=== PATIENT | male | born 1970 | race Caucasian/White ===

== ENCOUNTER 2020-03-02 16:43 | Inpatient (IN) | payer SELFPAY ==
[~2020-03-02] VITALS: Ht 172.7 cm; Wt 83.2 kg
[2020-03-02] VITALS (8 sets, daily range): BP systolic 132–147; BP diastolic 82–92; Ht 172.7 cm; Wt 83.2 kg
--- NOTE | ~2020-03-02 | OP ---
PATIENT NAME: GEORGINA CHO MEDICAL RECORD: [id number] :68 LOCATION:[id number] ADMISSION DATE:03/02/20 SURGEON: GEORGINA HALEY MD DATE OF OPERATION: 03/02/2020 PREOPERATIVE DIAGNOSIS: Fracture dislocation of the right ankle. POSTOPERATIVE DIAGNOSIS: Fracture dislocation of the right ankle. PROCEDURE: Open reduction and internal fixation of fracture dislocation of the right ankle. SURGEON: Georgina Haley MD AUTOMATION LEAD: CHERRI Foley INTRAOPERATIVE COMPLICATIONS: None. SUMMARY OF PATHOLOGIC FINDINGS: The patient was initially met in the ER with a complete fracture dislocation. Mild amount of conscious sedation was given to the patient in the ER and the fracture was reduced and his pulses became very viable and bounding. Having completed this, he was then taken urgently to the operating room for the below mentioned surgery. OPERATIVE SUMMARY IN DETAIL: After obtaining the appropriate preoperative orthopedic surgery consent as well as anesthetic consultation, evaluation and clearance, the patient was brought to the operating room and placed on the operating table in supine position. After general laryngeal mask was administered, tourniquet was placed on the proximal aspect of the right lower extremity. Right lower extremity was then prepped and draped in routine sterile fashion. Leg was elevated, exsanguinated and tourniquet inflated to 350 mmHg. At this point, appropriate timeout was taken and agreed upon by all. Attention was first turned to the fibular fracture. An incision was made about the fibula. A 6-hole fibular plate was used, the VariAx 2, and a combination of both locking and nonlocking screws were utilized to reduce the fibula anatomically. Having completed this, again under fluoroscopic visualization, noting that the patient's medial malleolar fracture was more of a shear-type fracture up into the tibia, it was decided that a buttress plate along with internal fixation screws were needed. Again, under direct visualization, the fracture was reduced after all hematoma had been cleared from the fracture itself and then a 6-hole 1/3rd tubular plate was then placed in the buttress style fashion incorporating a fracture transfixing screws. Again, done under fluoroscopic visualization. Having completed this, final radiographs were taken in AP and lateral planes and submitted for AP, lateral and oblique planes and submitted for radiologist's review. Both wounds were copiously irrigated and closed with 2-0 Vicryl followed by skin rosita. This was done by CHERRI Foley. Sterile dressings were applied. Tourniquet was deflated. A posterior L&U splint was applied. The patient was then awakened and taken to recovery room in stable condition. All final needle and sponge counts were correct. TRANSINT:[id number] Voice Confirmation ID: [id number] DOCUMENT ID: [id number] OPERATIVE REPORT [id number] GEORGINA CHO MD, GEORGINA VELEZ CC: [id number] DICTATION DATE: 03/16/20934 SUMMER NANNY: 03/16/20957 DIS IN 03/03/20 [place] [id number] [place] [id number]
--- NOTE | 2020-03-02 16:57 | NUR ---
TRAUMA BAND [id number]
--- NOTE | 2020-03-02 17:20 | NUR ---
DR. HALEY AT BEDSIDE TO REDUCE RT ANKLE.
[2020-03-02 17:31] LABS: BASOPHILS 0.5 % (0-2); EOSINOPHILS 1.8 % (0-7); HEMATOCRIT 45.2 % (42.0-54.0); HEMOGLOBIN 15.2 g/dL (13.5-17.5); IMMATURE GRANULOCYTES 0.2 % (0-5); LYMPHOCYTES 15.7 % (15-50); MCH 28.4 pg (26.0-34.0); MCHC 33.6 g/dL (31.0-37.0); MCV 84.5 fL (80.0-100.0); MEAN PLATELET VOLUME 9.1 fL (7.4-10.4); MONOCYTES 7.7 % (2-11); NEUTROPHILS 74.1 % (40-80); PLATELET COUNT 281 10x3/uL (130-400); RBC 5.35 10x6/uL (4.20-6.10); RDW 13.2 % (11.5-14.5); WBC 13.2 10x3/uL (4.8-10.8)
[2020-03-02 17:34] LABS: ANION GAP 17.4 mmol/L (8-16); CALCIUM 9.4 mg/dL (8.5-10.1); CARBON DIOXIDE 23.6 mmol/L (21.0-32.0); CREATININE - SERUM 1.8 mg/dL (0.6-1.3)
[2020-03-02 17:35] LABS: APTT 26.3 SECONDS (22.8-39.4); INR 0.99 (0.85-1.17)
[2020-03-02 17:40] LABS: ALBUMIN 4.3 g/dL (3.4-5.0); BILIRUBIN - TOTAL 0.48 mg/dL (0.2-1.3); PROTEIN - SERUM 8.1 g/dL (6.4-8.2)
--- NOTE | 2020-03-02 17:43 | NUR ---
FRIEND OF THE PT IN THE ROOM. PT KEYS GIVEN TO DANIEL ARCE: 4 HOUSE KEYS AND ONE VEHICLE JACOBS.
--- NOTE | 2020-03-02 20:53 | NUR ---
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 D/C TO FLOOR FOR BEDSIDE REPORT.
--- NOTE | 2020-03-02 21:00 | NUR ---
PT BROUGHT TO FLOOR FROM RECOVERY, AOX4. IV RIGHT FA, STARTED D5 1/2NS INFUSING @ 50. VSS. PT STATES NO PAIN. RIGHT ANKLE PROPPED ON PILLOW, ICE PACK OVER JOSE CARLOS WRAP. DRESSING CDI. CAP REFILL < 3, PULSE PRESENT. PROVIDED PT WITH URINAL, COLA, AND INCENTIVE SPIROMETER. PT FRIEND AT BEDSIDE AT THIS TIME. DENIES NEEDS. CL IN REACH, WILL CTM
--- NOTE | 2020-03-02 21:45 | NUR ---
PT STATED HE HAD NO ATE SINCE YESTERDAY, GAVE SANDWICH TRAY AND CRACKERS. DENIES OTHER NEEDS. WILL CTM
--- NOTE | 2020-03-02 22:45 | NUR ---
PT VERY ANXIOUS ABOUT BREAKING HIS LEG AND NOT BEING ABLE TO WORK, UPSET ABOUT HAVING TO USE URINAL TO VOID, STATES HE IS JUST GOING THROUGH A LOT AND NEEDS SOMETHING TO HELP HIM SLEEP. GAVE PT BENADRYL ORDERED. WILL CTM
[2020-03-03] VITALS (8 sets, daily range): BP systolic 105–136; BP diastolic 64–94
--- NOTE | 2020-03-03 00:45 | NUR ---
PT REQUESTED PAIN MEDICATION, SET UP [employer] AND PROVIDED TEACHING ON HOW TO USE. PT VERBALIZED UNDERSTANDING. WILL CTM
--- NOTE | 2020-03-03 07:15 | NUR ---
REC'D IN BED AWAKE AND ALERT. RESP EVEN AND UNLABORED WITH ON DISTRESS NOTED. CAN EXPRESS NEEDS AND WANTS. NO C/O NOTED OR VOICED. ASSESSMENT COMPLETED. C/L IN REACH AT BEDSIDE.
[2020-03-03 10:29] LABS: HEMATOCRIT 40.5 % (42.0-54.0); HEMOGLOBIN 13.4 g/dL (13.5-17.5); MCH 28.2 pg (26.0-34.0); MCHC 33.1 g/dL (31.0-37.0); MCV 85.1 fL (80.0-100.0); MEAN PLATELET VOLUME 9.3 fL (7.4-10.4); RBC 4.76 10x6/uL (4.20-6.10); RDW 13.4 % (11.5-14.5); WBC 14.2 10x3/uL (4.8-10.8)
[2020-03-03 10:42] LABS: CALC OSMOLALITY 274 mosm/kg (275-300); CALCIUM 8.3 mg/dL (8.5-10.1); CARBON DIOXIDE 27.6 mmol/L (21.0-32.0); CHLORIDE - SERUM 104 mmol/L (98-107); GLUCOSE 132 mg/dL (74-106); SODIUM 136 mmol/L (136-145); UREA NITROGEN 16 mg/dL (7-18); eGFR NON AFRICAN AMERICAN 75 mL/min (90-120)
[2020-03-03 10:48] LABS: CREATININE - SERUM 1.1 mg/dL (0.6-1.3)
[2020-03-03] MEDS ORDERED: PERCOCET 10-321 EAC1 PO (16:20)
--- NOTE | 2020-03-03 16:20 | NUR ---
WAS MEDICATED WITH OXY PER ORDERS FOR PAIN RATING 8/10 TO RIGHT ANKLE. C/L IN REACH AT BEDSIDE.
[2020-03-03] MEDS ORDERED: ASPIRIN EC81 MG PO (16:21)
--- NOTE | 2020-03-03 18:22 | NUR ---
DC HOME AT THIS TIME VOICE UNDERSTANDING OF DC INSTRUCTION. PT HAS ALL PERSONAL BELONGS. STABLE CONDITION OPON DEPARTURE.
--- NOTE | 2020-03-04 08:40 | MORECARE ---
CASE MANAGEMENT DISCHARGE SUMMARY PATIENT: GEORGINA CHO UNIT: [id number] ADM DATE: 03/02/20 AGE: 49 : 68 SEX: M ROOM/BED: D.2216 AUTHOR: MOY FRIEDMAN PHYSICIAN: REFERRING PHYSICIAN: GEORGINA HALEY MD DATE OF SERVICE: 03/04/20 Discharge Plan Patient Name: GEORGINA CHO Facility: [facility]:[place] : 1970 Planned Disposition: Home Anticipated Discharge Date: Discharge Date: 03/03/2020 Expected LOS: Initial Reviewer: [email or web address] Initial Review Date: 03/02/2020 Generated: 03/04/20 9:39 am Comments DCP- Discharge Planning Updated by [email or web address]: Basia Murillo on 03/04/20 7:[address] PER NURSE PATIENT WAS GETTING CRUTCHES FROM FRIEND Patient Name: GEORGINA CHO Page [id number] at 0840 All edits/amendments must be made on the electronic document DICTATION DATE: 03/04/20839 TRANSMITTER TESTER: SHERIN 03/04/20839 RPT#: [id number] DC DATE:03/03/20 STATUS: DIS IN [place] [id number] [place] [address] END OF REPORT
--- NOTE | 2020-03-07 09:08 | MORECARE ---
CASE MANAGEMENT DISCHARGE SUMMARY PATIENT: GEORGINA CHO UNIT: [id number] ADM DATE: 03/02/20 AGE: 49 : 68 SEX: M ROOM/BED: D.2216 AUTHOR: MOY FRIEDMAN PHYSICIAN: REFERRING PHYSICIAN: GEORGINA HALEY MD DATE OF SERVICE: 03/07/20 Discharge Plan Patient Name: GEORGINA CHO Facility: [facility]:[place] : 1970 Planned Disposition: Home Anticipated Discharge Date: Discharge Date: 03/03/2020 Expected LOS: Initial Reviewer: [email or web address] Initial Review Date: 03/02/2020 Generated: 03/07/20 10:07 am Comments DCP- Discharge Planning Updated by [email or web address]: Basia Murillo on 03/04/20 7:[address] PER NURSE PATIENT WAS GETTING CRUTCHES FROM FRIEND Last DP export: 03/04/20 7:40 a Patient Name: GEORGINA CHO Page [phone] at 0908 All edits/amendments must be made on the electronic document DICTATION DATE: 03/07/20906 WIRELESS FIELD TECHNICIAN: SHERIN 03/07/20906 RPT#: [id number] DC DATE:03/03/20 STATUS: DIS IN [facility] [address] [place] [address] END OF REPORT
== END 2020-03-03 18:27 | disposition home or self-care (01) | DRG 494 ==
LOC: D.ER 16:43 → D.MS 19:53
PROVIDERS: Family Medicine; ADMIT Orthopaedic Surgery; ATTEND Orthopaedic Surgery
PROC: 0QSJ04Z Reposition Right Fibula with Internal Fixation Device, Open Approach (ICD-10-PCS; principal; 2020-03-02 17:55)
DX: S82.891A Other fracture of right lower leg, initial encounter for closed fracture (principal); W11.XXXA Fall on and from ladder, initial encounter